=== PATIENT | female | born 2000 | race Caucasian/White ===

== ENCOUNTER 2022-01-14 16:09 | Emergency (ER) | payer SELFPAY ==
[2022-01-14 17:05] LABS: HEMOGLOBIN 15.7 gm/dl (12.3-15.3); RED BLOOD COUNT 5.89 M/UL (4.00-5.10); WHITE BLOOD COUNT 10.9 K/UL (4.5-11.0)
[2022-01-14 17:13] LABS: BORDETELLA PARAPERTUSSIS Not Detected (Not Detectd); BORDETELLA PERTUSSIS Not Detected (Not Detectd); CHLAMYDIA PNEUMONIAE Not Detected (Not Detectd); CORONAVIRUS HKU1 Not Detected (Not Detectd); CORONAVIRUS NL63 Not Detected (Not Detectd); CORONAVIRUS OC43 Not Detected (Not Detectd); CORONOAVIRUS 229E Not Detected (Not Detectd); HUMAN METAPNEUMOVIRUS Not Detected (Not Detectd); HUMAN RHINOVIRUS/ENTEROVIRUS Not Detected (Not Detectd); INFLUENZA A Not Detected (Not Detectd); INFLUENZA B Not Detected (Not Detectd); MYCOPLASMA PNEUMONIAE Not Detected (Not Detectd); PARAINFLUENZA VIRUS 1 Not Detected (Not Detectd); PARAINFLUENZA VIRUS 2 Not Detected (Not Detectd); PARAINFLUENZA VIRUS 3 Not Detected (Not Detectd); PARAINFLUENZA VIRUS 4 Not Detected (Not Detectd); RESPIRATORY SYNCYTIAL VIRUS Not Detected (Not Detectd)
[2022-01-14 17:26] LABS: BUN/CREATININE RATIO 21 (0-10)
[2022-01-14 18:13] LABS: SARS-CoV-2 NOT DETECTED (Not Detectd)
[2022-01-14] MEDS ORDERED: IBUPROFEN600 MG PO (22:19)
[2022-01-14] MEDS ORDERED: ZOFRAN 4 MG TAB4 MG PO (22:19)
== END 2022-01-14 22:35 | disposition home or self-care (01) ==
LOC: ER1 16:09
PROVIDERS: Physician Assistant Medical
DX: B34.9 Viral infection, unspecified (principal); Z88.2 Allergy status to sulfonamides; Z20.822 Contact with and (suspected) exposure to COVID-19
CPT/HCPCS: 71045; 80053; 81001; 83605; 84703; 85025; 87040; 87633; 93005; 96374; 99284; J2405; Q9967